=== PATIENT | female | born 1965 | race Caucasian/White ===

== ENCOUNTER 2018-04-13 17:11 | Emergency (ER) | payer MEDICAID ==
[~2018-04-13] VITALS: Ht 154.9 cm; Wt 69.0 kg
[2018-04-13 17:19] VITALS: BP 141/75
[2018-04-13] MEDS ORDERED: METF-416 PO (17:27)
== END 2018-04-13 23:28 | disposition left against medical advice (07) ==
LOC: ER 19:29
DX: Z53.21 Procedure and treatment not carried out due to patient leaving prior to being seen by health care provider (principal); E11.9 Type 2 diabetes mellitus without complications; Z88.0 Allergy status to penicillin